=== PATIENT | male | born 1995 | race Asian ===

== ENCOUNTER 2023-08-28 07:38 | Emergency (ER) | payer MEDICAID ==
[~2023-08-28] VITALS: Ht 172.7 cm; Wt 102.3 kg
[2023-08-28 07:48] VITALS: BP 133/87; PULSE 94; RESP 14; TEMP 97.8
[2023-08-28] MEDS: LIDOCAINE 1% 10 ML VIAL SQ ONE (08:17)
[2023-08-28] MEDS: AMOX TR/POT CLAV 875 MG/125 MG TABLET PO ONE (08:17)
[2023-08-28] MEDS: PERTUSS(ACELL),DIPH,TET/PF 0.5 ML SYRINGE [ADULT] IM. ONE (08:18)
[2023-08-28] MEDS: OxyCODONE HCL/ACETAMINOPHEN 5-325 MG TABLET PO ONE (08:21)
[2023-08-28] MEDS ORDERED: AMOX500C2 PO (09:55)
[2023-08-28] MEDS ORDERED: IBUP-1492 PO (09:56)
[2023-08-28] MEDS ORDERED: PERCT PO (09:56)
[2023-08-28] MEDS ORDERED: CEPH-558 PO (09:56)
[2023-08-28] MEDS ORDERED: AMOX1TAB16 PO (10:40)
== END 2023-08-28 10:08 | disposition home or self-care (01) ==
LOC: EMS 07:39
DX: S62.636B Displaced fracture of distal phalanx of right little finger, initial encounter for open fracture (principal); W54.0XXA Bitten by dog, initial encounter; Y93.89 Activity, other specified; Y92.89 Other specified places as the place of occurrence of the external cause; Y99.8 Other external cause status
CPT/HCPCS: 11760; 99284; 73130; 90715; 90471; J3490

== ENCOUNTER 2023-08-30 22:21 | Emergency (ER) | payer MEDICAID ==
[~2023-08-30] VITALS: Ht 172.7 cm; Wt 100.0 kg
[~2023-08-30 22:21] MED LIST: AMOX1TAB16 PO; CEPH-558 PO; IBUP-1492 PO; PERCT PO
[2023-08-30 22:45] VITALS: BP 124/87; PULSE 91; RESP 17; TEMP 98.5
[2023-08-30] MEDS ORDERED: HYDROGEN PEROXIDE 118 ML SOLUTION ONE (23:13)
== END 2023-08-31 00:23 | disposition home or self-care (01) ==
LOC: EMS 22:24
DX: S62.616B Displaced fracture of proximal phalanx of right little finger, initial encounter for open fracture (principal); W54.0XXA Bitten by dog, initial encounter; Y93.89 Activity, other specified; Y92.89 Other specified places as the place of occurrence of the external cause; Y99.8 Other external cause status
CPT/HCPCS: 99281; Z7502; Z7610